=== PATIENT | male | born 1970 | race African-American/Black ===

== ENCOUNTER 2023-07-18 16:22 | Inpatient (IN) | payer MEDICAID, SELFPAY ==
[2023-07-18] MEDS ORDERED: Thiamine HCl 200 MG/2 ML VIAL ONE (17:08)
[2023-07-18] MEDS ORDERED: LORazepam 2 MG/ML SYR.(CARPUJECT) ONE (17:08)
[2023-07-18 17:38] LABS: INR-International Normal Ratio 1.4; PTT 33.6 sec (22.9-36.1); Prothrombin Time 16.8 sec (12.0-14.7)
[2023-07-18 17:50] LABS: ALT (SGPT) 56 U/L (8-55); AST (SGOT) 67 U/L (5-34); Acetaminophen Less than 10 mcg/mL (10.0-30.0); Albumin 3.8 g/dL (3.5-5.0); Alcohol Less than 10.0 mg/dL (Less than 10); Alkaline Phosphatase 97 U/L (40-110); Anion Gap 11 mmol/L (10-20); BUN (Urea Nitrogen) 19 mg/dL (8.4-25.7); Bilirubin, Total 0.8 mg/dL (0.2-1.2); Calc. Creatinine Clearance 0 mL/min (70-130); Carbon Dioxide 20 mmol/L (22-29); Chloride 105 mmol/L (98-107); Estimated GFR 103; Globulin 3.1 g/dL (2.4-3.5); Glucose 106 mg/dL (70-105); Magnesium 1.7 mg/dL (1.6-2.6); Potassium 4.2 mmol/L (3.5-5.1); Protein, Total 6.9 g/dL (6.0-8.3); Salicylate Less than 8.0 mg/dL (15.0-30.0); Sodium 132 mmol/L (136-145)
[2023-07-18 17:55] LABS: Troponin I 0.024 ng/mL (< 0.028)
[2023-07-18] MEDS ORDERED: Furosemide 40 MG (4 mL) VIAL ONE (20:14)
[2023-07-18] MEDS ORDERED: Aspirin Chewable 81 MG TAB ONE (21:14)
[2023-07-18] MEDS ORDERED: Magnesium 2 GM/50 ML BAG (IN WATER) ONE (21:14)
[2023-07-18 21:44] VITALS: BMI 28.0
[2023-07-18] MEDS ORDERED: Ondansetron ODT 4 MG TAB PO PRN (21:48)
[2023-07-18] MEDS ORDERED: Acetaminophen 325 MG TAB PO PRN (21:48)
[2023-07-18] MEDS ORDERED: Acetaminophen 650 MG Suppository PR PRN (21:48)
[2023-07-18] MEDS ORDERED: Lorazepam 1 MG TAB PO PRN (21:48)
[2023-07-18] MEDS ORDERED: Electrolyte Replacement Protocol 1 EACH FS PRN (22:00)
[2023-07-18] MEDS ORDERED: Communication Order-Pharmacy FS SCH (22:12)
[2023-07-18] MEDS ORDERED: Lorazepam 2 MG/ML VIAL SLOW IVP SCH (22:15)
[2023-07-18 22:22] LABS: #Basophils 0.1 thou/uL (0.0-0.2); #Eosinphils 0.1 thou/uL (0.0-0.7); #Monocytes 0.6 thou/uL (0.11-0.59); #Neutrophils 3.4 thou/uL (1.40-6.50); %Basophils 1.1 % (0.0-1.0); %Eosinophils 0.9 % (0.0-10.0); %Lymphocytes 22.4 % (21.0-51.0); %Monocytes 11.9 % (0.0-10.0); %Neutrophils 63.3 % (42.0-75.0); Hematocrit 33.1 % (42.0-52.0); Hemoglobin 10.3 g/dL (14.0-18.0); Mean Corpuscular HGB CONC 31.1 g/dL (32.0-36.0); Mean Corpuscular Hemoglobin 26.5 pg (27.0-31.0); Mean Corpuscular Volume 85.3 fl (78.0-98.0); Mean Platelet Volume 10.5 fL (7.4-10.4); Platelet Count 161 10x3/uL (130-400); RBC Distribution Width 16.9 % (11.5-14.5); Red Blood Cell (RBC) Count 3.88 mill/uL (4.70-6.10); White Blood Cell (WBC) Count 5.4 10x3/uL (4.8-10.8)
[2023-07-18] MEDS ORDERED: dilTIAZem 125 MG in Sodium Chloride 0.9% 100 ML IVPB SCH (22:30)
[2023-07-18] MEDS ORDERED: chlordiazePOXIDE HCl 25 MG CAP PO SCH (22:30)
[2023-07-18] MEDS: Lorazepam 1 MG TAB PO SCH (22:31)
[2023-07-18] MEDS ORDERED: Lorazepam 1 MG TAB ONE (22:33)
[2023-07-18 22:39] LABS: Phosphorus 2.9 mg/dL (2.3-4.7)
[2023-07-18] MEDS ORDERED: dilTIAZem 125 MG, Admixture Fee 1 EACH in Sodium Chloride 0.9% 100 ML IVPB SCH (22:45)
[2023-07-18 22:46] LABS: Troponin I 0.034 ng/mL (< 0.028)
[2023-07-19] MEDS: Enoxaparin 100 MG (1 mL) SYRINGE SC SCH ×2 (00:59→08:21)
[2023-07-19] MEDS: Lorazepam 2 MG/ML VIAL IM PRN (00:59)
[2023-07-19] MEDS: LORazepam 2 MG/ML SYR.(CARPUJECT) IVP SCH (01:01)
[2023-07-19] MEDS: Lorazepam 1 MG TAB PO SCH (01:02)
[2023-07-19 01:25] LABS: Troponin I 0.034 ng/mL (< 0.028)
[2023-07-19 05:01] LABS: Phosphorus 3.1 mg/dL (2.3-4.7)
[2023-07-19 05:03] LABS: Anion Gap 13 mmol/L (10-20); BUN (Urea Nitrogen) 15 mg/dL (8.4-25.7); Calc. Creatinine Clearance 123 mL/min (70-130); Calcium 9.1 mg/dL (7.8-10.44); Carbon Dioxide 21 mmol/L (22-29); Chloride 104 mmol/L (98-107); Estimated GFR 100; Glucose 97 mg/dL (70-105); Magnesium 2.1 mg/dL (1.6-2.6); Potassium 3.6 mmol/L (3.5-5.1); Sodium 134 mmol/L (136-145)
[2023-07-19] MEDS: Furosemide 40 MG (4 mL) VIAL SLOW IVP SCH (06:24)
[2023-07-19] MEDS: Famotidine 20 MG TAB PO SCH (08:21)
[2023-07-19] MEDS: chlordiazePOXIDE HCl 25 MG CAP PO SCH (08:21)
[2023-07-19] MEDS: Multivit, Therapeutic 1 TAB PO SCH (08:21)
[2023-07-19] MEDS: Folic Acid 1 MG TAB PO SCH (08:21)
[2023-07-19] MEDS ORDERED: Lorazepam 1 MG TAB PO PRN (21:48)
[2023-07-19] MEDS: Carvedilol 6.25 MG TAB PO SCH (22:21)
[2023-07-20 05:36] LABS: Hemoglobin 10.6 g/dL (14.0-18.0); Manual Diff?? YES; Mean Corpuscular HGB CONC 31.2 g/dL (32.0-36.0); Mean Corpuscular Hemoglobin 26.4 pg (27.0-31.0); Mean Corpuscular Volume 84.6 fl (78.0-98.0); Mean Platelet Volume 10.4 fL (7.4-10.4); Platelet Count 139 10x3/uL (130-400); RBC Distribution Width 16.8 % (11.5-14.5); Red Blood Cell (RBC) Count 4.02 mill/uL (4.70-6.10); White Blood Cell (WBC) Count 3.4 10x3/uL (4.8-10.8)
[2023-07-20 05:42] LABS: Delete Auto Diff?? YES
[2023-07-20 05:44] LABS: Hemoglobin A1c 5.5 % (4.0-6.0)
[2023-07-20 06:03] LABS: Anion Gap 12 mmol/L (10-20); BUN (Urea Nitrogen) 23 mg/dL (8.4-25.7); Calc. Creatinine Clearance 98 mL/min (70-130); Calcium 9.2 mg/dL (7.8-10.44); Carbon Dioxide 24 mmol/L (22-29); Chloride 100 mmol/L (98-107); Estimated GFR 82; Glucose 96 mg/dL (70-105); Potassium 3.4 mmol/L (3.5-5.1); Sodium 133 mmol/L (136-145)
[2023-07-20 06:14] LABS: Anisocytosis SLIGHT = 6-15 cells HPF (0-5); Band 5 % (5-11); CellaVision Operator ID LAB.CLH1; Hypochromia SLIGHT = 6-15 cells HPF (0-5); Large Platelets 16.5 % (0-5); Lymphocytes 28 % (21-51); Monocytes 12 % (0-10); Neutrophil 52 % (42-75); Platelet Adequacy Comment Platelets Normal; Total Cell Count 103
[2023-07-20] MEDS: Potassium Chloride 20 MEQ TAB PO SCH (08:54)
[2023-07-20 12:39] VITALS: BP 117/85; TEMP 98
[2023-07-20] MEDS: Naproxen 500 MG TAB PO PRN (13:46)
[2023-07-20] MEDS ORDERED: Lorazepam 1 MG TAB PO PRN (21:48)
[2023-07-21] MEDS ORDERED: Lorazepam 0.5 MG TAB PO PRN (21:48)
[2023-07-21] MEDS ORDERED: Thiamine 100 MG TAB PO SCH (22:00)
== END 2023-07-20 14:53 | disposition left against medical advice (07) | DRG 291 ==
LOC: ERS 16:22 → ERHOLD 21:17 → 2SE 23:20
PROVIDERS: ADMIT Internal Medicine; ATTEND Internal Medicine
DX: I11.0 Hypertensive heart disease with heart failure (principal); I50.21 Acute systolic (congestive) heart failure; F10.99 Alcohol use, unspecified with unspecified alcohol-induced disorder; Z59.00 Homelessness unspecified; I48.91 Unspecified atrial fibrillation; F15.10 Other stimulant abuse, uncomplicated; F12.10 Cannabis abuse, uncomplicated; E87.6 Hypokalemia; Z98.890 Other specified postprocedural states; Z88.0 Allergy status to penicillin
CPT/HCPCS: 36415; 36416; 70450; 71045; 80048; 80053; 80307; 83036; 83735; 83880; 84100; 84443; 84484; 85025; 85610; 85730; 93005; 93306; 96361; 96365; 96374; 96375; 97139; J1650; J1940; J2060; J3411; J3475

== ENCOUNTER 2023-07-30 01:05 | Emergency (ER) | payer MEDICAID, OTHER ==
[2023-07-30] MEDS ORDERED: Diazepam 10 MG/2 ML SYRINGE ONE (01:38)
[2023-07-30] MEDS ORDERED: dilTIAZem 25 MG/5 ML VIAL ONE (01:39)
== END 2023-07-30 03:10 | disposition left against medical advice (07) ==
LOC: ERS 01:05
DX: I48.20 Chronic atrial fibrillation, unspecified (principal); I10 Essential (primary) hypertension
CPT/HCPCS: 71045; 93005; 96374; 96375; J3360

== ENCOUNTER 2023-08-01 10:46 | Inpatient (IN) | payer MEDICAID, OTHER ==
[2023-08-01 11:33] LABS: #Basophils 0.1 thou/uL (0.0-0.2); #Eosinphils 0.4 thou/uL (0.0-0.7); #Monocytes 0.6 thou/uL (0.11-0.59); #Neutrophils 3.2 thou/uL (1.40-6.50); %Basophils 1.5 % (0.0-1.0); %Eosinophils 6.8 % (0.0-10.0); %Lymphocytes 20.1 % (21.0-51.0); Hematocrit 33.9 % (42.0-52.0); Hemoglobin 10.7 g/dL (14.0-18.0); Mean Corpuscular HGB CONC 31.6 g/dL (32.0-36.0); Mean Corpuscular Hemoglobin 26.6 pg (27.0-31.0); Mean Corpuscular Volume 84.1 fl (78.0-98.0); Mean Platelet Volume 11.8 fL (7.4-10.4); Platelet Count 119 10x3/uL (130-400); Red Blood Cell (RBC) Count 4.03 mill/uL (4.70-6.10); White Blood Cell (WBC) Count 5.3 10x3/uL (4.8-10.8)
[2023-08-01 11:46] LABS: Troponin I 0.019 ng/mL (< 0.028)
[2023-08-01] MEDS ORDERED: Metoclopramide HCl 10 MG (2 mL) VIAL ONE (12:04)
[2023-08-01] MEDS ORDERED: Enoxaparin 100 MG (1 mL) SYRINGE ONE (12:05)
[2023-08-01] MEDS ORDERED: LORazepam 2 MG/ML SYR.(CARPUJECT) ONE ×3 (12:05→13:19)
[2023-08-01] MEDS ORDERED: Magnesium 2 GM/50 ML BAG (IN WATER) ONE (12:05)
[2023-08-01] MEDS ORDERED: Famotidine/PF 20 mg/2ml Vial ONE (12:05)
[2023-08-01] MEDS ORDERED: Metoprolol Tartrate 5 MG (5 mL) VIAL ONE (12:30)
[2023-08-01] MEDS ORDERED: Senokot S 8.6-50 MG TAB PO PRN (13:16)
[2023-08-01] MEDS ORDERED: Calcium Carbonate 500 MG ChewTAB PO PRN (13:16)
[2023-08-01] MEDS ORDERED: Ondansetron PF 4 MG/2 ML Vial IVP PRN (13:16)
[2023-08-01] MEDS ORDERED: Furosemide 40 MG (4 mL) VIAL ONE ×2 (13:19→17:50)
[2023-08-01] MEDS ORDERED: Metoprolol Tartrate 5 MG (5 mL) VIAL IVP PRN (13:20)
[2023-08-01] MEDS ORDERED: Apixaban 5 MG TAB PO SCH (13:30)
[2023-08-01 13:40] LABS: Albumin 3.9 g/dL (3.5-5.0)
[2023-08-01 13:41] LABS: Chloride 107 mmol/L (98-107); Potassium 4.4 mmol/L (3.5-5.1); Sodium 132 mmol/L (136-145)
[2023-08-01 13:42] LABS: Calcium 9.2 mg/dL (7.8-10.44); Glucose 88 mg/dL (70-105)
[2023-08-01 13:43] LABS: Globulin 3.3 g/dL (2.4-3.5); Protein, Total 7.2 g/dL (6.0-8.3)
[2023-08-01 13:44] LABS: Anion Gap 11 mmol/L (10-20); Bilirubin, Total 1.1 mg/dL (0.2-1.2); Carbon Dioxide 18 mmol/L (22-29)
[2023-08-01 13:45] LABS: Alkaline Phosphatase 98 U/L (40-110)
[2023-08-01 13:46] LABS: Calc. Creatinine Clearance 0 mL/min (70-130); Estimated GFR 91
[2023-08-01 13:47] LABS: BUN (Urea Nitrogen) 22 mg/dL (8.4-25.7)
[2023-08-01 13:48] LABS: ALT (SGPT) 30 U/L (8-55); AST (SGOT) 37 U/L (5-34)
[2023-08-01] MEDS ORDERED: Metoprolol Tartrate 25 MG TAB ONE (14:49)
[2023-08-01] MEDS ORDERED: Lorazepam 1 MG TAB ONE (14:49)
[2023-08-01] MEDS: Lorazepam 1 MG TAB PO PRN (14:55)
[2023-08-01] MEDS: Metoprolol Tartrate 50 MG TAB PO SCH ×2 (14:55→21:24)
[2023-08-01] MEDS ORDERED: Furosemide 40 MG TAB PO SCH (18:00)
[2023-08-01] MEDS: Furosemide 40 MG (4 mL) VIAL IVP SCH (18:06)
[2023-08-01] MEDS: Lorazepam 2 MG/ML VIAL SLOW IVP SCH (21:22)
[2023-08-01] MEDS: Apixaban 5 MG TAB PO SCH (21:24)
[2023-08-01] MEDS: Folic Acid 1 MG TAB PO SCH (21:24)
[2023-08-01] MEDS: Multivit, Therapeutic 1 TAB PO SCH (21:24)
[2023-08-01 22:09] LABS: Actual Bicarbonate (HCO3v) 22.9 mEq/L (22-28); Base Excess -2.2 mEq/L (-2.0 to +3.0); Calcium, Ionized (venous) 1.14 mmol/L (1.16-1.32); Chloride (VBG) 101 mmol/L (98-106); Hematocrit-VBG 33 % (42.0-52.0); Hemoglobin (Hb) 11.3 g/dL (13.1-17.2); Potassium (VBG) 3.99 mmol/L (3.70-5.30); Sodium 137 mmol/L (133-146)
[2023-08-02 03:52] VITALS: TEMP 97.5
[2023-08-02 04:52] VITALS: BMI 24.1
[2023-08-02 05:57] LABS: #Basophils 0.1 thou/uL (0.0-0.2); #Eosinphils 0.4 thou/uL (0.0-0.7); #Monocytes 0.7 thou/uL (0.11-0.59); #Neutrophils 3.9 thou/uL (1.40-6.50); %Eosinophils 5.5 % (0.0-10.0); %Lymphocytes 24.7 % (21.0-51.0); %Monocytes 10.6 % (0.0-10.0); %Neutrophils 56.8 % (42.0-75.0); Mean Corpuscular HGB CONC 30.6 g/dL (32.0-36.0); Mean Corpuscular Volume 85.1 fl (78.0-98.0); Mean Platelet Volume 11.9 fL (7.4-10.4); Platelet Count 156 10x3/uL (130-400); RBC Distribution Width 17.3 % (11.5-14.5); Red Blood Cell (RBC) Count 4.23 mill/uL (4.70-6.10); White Blood Cell (WBC) Count 6.9 10x3/uL (4.8-10.8)
[2023-08-02] MEDS: Lorazepam 1 MG TAB PO PRN (05:59)
[2023-08-02] MEDS: Nicotine 21 MG PATCH TD PRN (06:00)
[2023-08-02] MEDS: Furosemide 40 MG (4 mL) VIAL SLOW IVP SCH (06:00)
[2023-08-02 06:16] LABS: Anion Gap 16 mmol/L (10-20); BUN (Urea Nitrogen) 31 mg/dL (8.4-25.7); Calc. Creatinine Clearance 77 mL/min (70-130); Carbon Dioxide 18 mmol/L (22-29); Chloride 103 mmol/L (98-107); Potassium 4.2 mmol/L (3.5-5.1); Sodium 133 mmol/L (136-145)
[2023-08-02 06:17] LABS: ALT (SGPT) 36 U/L (8-55); AST (SGOT) 43 U/L (5-34); Albumin 4.2 g/dL (3.5-5.0); Alkaline Phosphatase 118 U/L (40-110); Bilirubin, Total 1.3 mg/dL (0.2-1.2); Calcium 9.5 mg/dL (7.8-10.44); Cardiac Risk 3.6 (Less than 4.5); Cholesterol 82 mg/dl (< 200 Desired); Estimated GFR 62; Globulin 3.6 g/dL (2.4-3.5); Glucose 80 mg/dL (70-105); HDL Cholesterol 23 mg/dL (>60 Neg Risk); LDL Cholesterol, Calculated 40 mg/dL; Protein, Total 7.8 g/dL (6.0-8.3); Triglycerides 93 mg/dL (Less than 150)
[2023-08-02 06:36] LABS: Hemoglobin A1c 5.4 % (4.0-6.0)
[2023-08-02] MEDS: Thiamine 100 MG TAB PO SCH (08:55)
[2023-08-02 10:51] VITALS: BP 146/78
[2023-08-02] MEDS ORDERED: Lorazepam 1 MG TAB PO PRN (23:59)
[2023-08-03] MEDS ORDERED: Lorazepam 1 MG TAB PO PRN (23:59)
[2023-08-04] MEDS ORDERED: Lorazepam 0.5 MG TAB PO PRN (23:59)
== END 2023-08-02 12:16 | disposition left against medical advice (07) | DRG 291 ==
LOC: EEVIPCON 10:46 → ERS 10:46 → SUATTDRO 10:46 → EEVIPCON 13:28 → ERHOLD 13:28 → 2SW 19:10
PROVIDERS: ADMIT Internal Medicine; ATTEND Internal Medicine
DX: I11.0 Hypertensive heart disease with heart failure (principal); I50.23 Acute on chronic systolic (congestive) heart failure; E87.1 Hypo-osmolality and hyponatremia; Z59.00 Homelessness unspecified; I48.91 Unspecified atrial fibrillation; F41.9 Anxiety disorder, unspecified; F32.A Depression, unspecified; F43.10 Post-traumatic stress disorder, unspecified; F17.210 Nicotine dependence, cigarettes, uncomplicated; D64.9 Anemia, unspecified; F19.10 Other psychoactive substance abuse, uncomplicated; Z88.0 Allergy status to penicillin
CPT/HCPCS: 36415; 36416; 71045; 80053; 80061; 82805; 83036; 83735; 83880; 84443; 84484; 85025; 85379; 93005; 94760; 96365; 96368; 96372; 96375; 96376; J1650; J1940; J2060; J2765; J3475; S0028

== ENCOUNTER 2023-08-03 18:20 | Emergency (ER) | payer MEDICAID ==
[2023-08-03] MEDS ORDERED: Thiamine HCl 200 MG/2 ML VIAL ONE (18:45)
[2023-08-03 19:19] LABS: #Basophils 0.1 thou/uL (0.0-0.2); #Eosinphils 0.1 thou/uL (0.0-0.7); #Monocytes 0.4 thou/uL (0.11-0.59); #Neutrophils 5.1 thou/uL (1.40-6.50); %Basophils 0.9 % (0.0-1.0); %Eosinophils 1.9 % (0.0-10.0); %Lymphocytes 14.6 % (21.0-51.0); %Monocytes 5.8 % (0.0-10.0); %Neutrophils 76.2 % (42.0-75.0); Hematocrit 33.5 % (42.0-52.0); Hemoglobin 10.7 g/dL (14.0-18.0); Mean Corpuscular HGB CONC 31.9 g/dL (32.0-36.0); Mean Corpuscular Hemoglobin 26.3 pg (27.0-31.0); Mean Corpuscular Volume 82.3 fl (78.0-98.0); Mean Platelet Volume 10.4 fL (7.4-10.4); Platelet Count 163 10x3/uL (130-400); RBC Distribution Width 17.2 % (11.5-14.5); Red Blood Cell (RBC) Count 4.07 mill/uL (4.70-6.10); White Blood Cell (WBC) Count 6.7 10x3/uL (4.8-10.8)
[2023-08-03 19:38] LABS: ALT (SGPT) 40 U/L (8-55); AST (SGOT) 52 U/L (5-34); Albumin 4.1 g/dL (3.5-5.0); Alkaline Phosphatase 102 U/L (40-110); Anion Gap 15 mmol/L (10-20); BUN (Urea Nitrogen) 23 mg/dL (8.4-25.7); Bilirubin, Total 1.2 mg/dL (0.2-1.2); CK (CPK) 208 U/L (30-200); Calc. Creatinine Clearance 0 mL/min (70-130); Calcium 9.1 mg/dL (7.8-10.44); Carbon Dioxide 21 mmol/L (22-29); Chloride 98 mmol/L (98-107); Estimated GFR 88; Globulin 3.6 g/dL (2.4-3.5); Glucose 74 mg/dL (70-105); Lipase 13 U/L (8-78); Potassium 3.8 mmol/L (3.5-5.1); Protein, Total 7.7 g/dL (6.0-8.3); Sodium 130 mmol/L (136-145)
[2023-08-03 21:36] LABS: Bacteria/HPF None Seen HPF (None Seen); Bilirubin Negative (Negative); Blood, Urine Negative (Negative); CAUTI Indications for Culture Alt mental st,lethar; Clarity Clear (Clear); Glucose, Urine (Dipstick) Normal (Negative); Ketone, Urine Negative (Negative); Leukocyte Negative Leu/uL (Negative); Nitrite Negative (Negative); Protein, Urine (Dipstick) Negative (Neg-Trace); RBC/HPF None Seen HPF (0-3); Specific Gravity, Urine 1.003 (1.002-1.036); Squamous Epithelial None Seen HPF (0-3); Urobilinogen Normal mg/dL (Less than 2); WBC/HPF None Seen HPF (0-3)
[2023-08-03 21:37] LABS: Urine Culture Reflex No No
== END 2023-08-03 22:25 | disposition home or self-care (01) ==
LOC: ERS 18:20
DX: S62.002A Unspecified fracture of navicular [scaphoid] bone of left wrist, initial encounter for closed fracture (principal); I48.91 Unspecified atrial fibrillation; F10.129 Alcohol abuse with intoxication, unspecified; I11.0 Hypertensive heart disease with heart failure; I50.20 Unspecified systolic (congestive) heart failure; B19.20 Unspecified viral hepatitis C without hepatic coma; R70.0 Elevated erythrocyte sedimentation rate; F17.210 Nicotine dependence, cigarettes, uncomplicated; Y35 Legal intervention
CPT/HCPCS: 25630; 36415; 70450; 71045; 80053; 81001; 82140; 82550; 83690; 83735; 84443; 85025; 93005; 94760; 96361; 96374; J3411

== ENCOUNTER 2023-08-04 21:47 | Emergency (ER) | payer MEDICAID ==
[2023-08-04] MEDS ORDERED: Lidocaine 1% w/Epinephrine 1:100K 20 ML VIAL ONE (22:05)
[2023-08-05 01:01] LABS: Amphetamine Not Detected (NotDetected); Barbiturates Screen Not Detected (NotDetected); Benzodiazepine Screen Detected (NotDetected); Cocaine Metabolite Screen Not Detected (NotDetected); Methadone Not Detected (NotDetected); Methamphetamine Not Detected (NotDetected); Opiate Screen Not Detected (NotDetected); Oxycodone Screen Not Detected (NotDetected); Phencyclidine (PCP) Not Detected (NotDetected); THC/Cannabinoid Screen Detected (NotDetected); Tricyclic Screen Not Detected (NotDetected)
[2023-08-05 02:19] LABS: #Basophils 0.1 thou/uL (0.0-0.2); #Eosinphils 0.5 thou/uL (0.0-0.7); #Monocytes 0.5 thou/uL (0.11-0.59); #Neutrophils 3.8 thou/uL (1.40-6.50); %Basophils 1.5 % (0.0-1.0); %Eosinophils 7.3 % (0.0-10.0); %Lymphocytes 26.4 % (21.0-51.0); %Monocytes 7.9 % (0.0-10.0); Hematocrit 35.3 % (42.0-52.0); Hemoglobin 11.1 g/dL (14.0-18.0); Mean Corpuscular HGB CONC 31.4 g/dL (32.0-36.0); Mean Corpuscular Hemoglobin 26.2 pg (27.0-31.0); Mean Corpuscular Volume 83.5 fl (78.0-98.0); Mean Platelet Volume 10.8 fL (7.4-10.4); Platelet Count 199 10x3/uL (130-400); RBC Distribution Width 17.7 % (11.5-14.5); Red Blood Cell (RBC) Count 4.23 mill/uL (4.70-6.10); White Blood Cell (WBC) Count 6.8 10x3/uL (4.8-10.8)
[2023-08-05 02:36] LABS: Acetaminophen Less than 10 mcg/mL (10.0-30.0); Alcohol 217.1 mg/dL (Less than 10); Salicylate Less than 8.0 mg/dL (15.0-30.0)
[2023-08-05 02:37] LABS: ALT (SGPT) 35 U/L (8-55); AST (SGOT) 45 U/L (5-34); Alkaline Phosphatase 101 U/L (40-110); Anion Gap 14 mmol/L (10-20); BUN (Urea Nitrogen) 16 mg/dL (8.4-25.7); Bilirubin, Total 0.6 mg/dL (0.2-1.2); Calc. Creatinine Clearance 0 mL/min (70-130); Calcium 8.6 mg/dL (7.8-10.44); Carbon Dioxide 24 mmol/L (22-29); Chloride 104 mmol/L (98-107); Estimated GFR 80; Globulin 3.2 g/dL (2.4-3.5); Glucose 79 mg/dL (70-105); Potassium 3.5 mmol/L (3.5-5.1); Protein, Total 7.2 g/dL (6.0-8.3); Sodium 138 mmol/L (136-145)
[2023-08-05] MEDS ORDERED: Ibuprofen 800 MG TAB ONE (03:34)
[2023-08-05] MEDS ORDERED: chlordiazePOXIDE HCl 25 MG CAP ONE (03:59)
[2023-08-05] MEDS ORDERED: hydrOXYzine Pamoate 25 mg Capsule ONE (10:36)
[2023-08-05] MEDS ORDERED: Acetaminophen 325 MG TAB ONE (10:36)
[2023-08-05] MEDS ORDERED: Ibuprofen 200 MG TAB ONE (13:57)
[2023-08-05] MEDS ORDERED: Lorazepam 1 MG TAB ONE (14:14)
== END 2023-08-05 14:20 ==
LOC: ERS 21:47
DX: S01.81XA Laceration without foreign body of other part of head, initial encounter (principal); F10.129 Alcohol abuse with intoxication, unspecified; Y90.7 Blood alcohol level of 200-239 mg/100 ml; R45.851 Suicidal ideations; I11.0 Hypertensive heart disease with heart failure; I50.9 Heart failure, unspecified; F17.210 Nicotine dependence, cigarettes, uncomplicated; V19.9XXA Pedal cyclist (driver) (passenger) injured in unspecified traffic accident, initial encounter
CPT/HCPCS: 25630; 36415; 70450; 71045; 72125; 80053; 80306; 80307; 81001; 82140; 82550; 83690; 83735; 84443; 85025; 93005; 94760; 96361; 96374; J3411; Q0177

== ENCOUNTER 2023-08-22 05:57 | Emergency (ER) | payer MEDICAID | END 2023-08-22 06:48 | disposition home or self-care (01) | LOC: ERS 05:57 | DX: S91.312A Laceration without foreign body, left foot, initial encounter (principal); I83.892 Varicose veins of left lower extremity with other complications; X58.XXXA Exposure to other specified factors, initial encounter | CPT/HCPCS: 12001 ==

== ENCOUNTER 2023-08-29 11:10 | Inpatient (IN) | payer MEDICAID, OTHER ==
[2023-08-29] MEDS ORDERED: Lorazepam 1 MG TAB ONE ×3 (11:27→20:57)
[2023-08-29] MEDS ORDERED: LORazepam 2 MG/ML SYR.(CARPUJECT) ONE (11:37)
[2023-08-29] MEDS ORDERED: Ondansetron PF 4 MG/2 ML Vial ONE (11:37)
[2023-08-29 12:18] LABS: #Basophils 0.1 thou/uL (0.0-0.2); #Eosinphils 0.1 thou/uL (0.0-0.7); #Monocytes 0.7 thou/uL (0.11-0.59); #Neutrophils 3.6 thou/uL (1.40-6.50); %Basophils 1.4 % (0.0-1.0); %Eosinophils 1.7 % (0.0-10.0); %Lymphocytes 22.5 % (21.0-51.0); %Monocytes 12.4 % (0.0-10.0); %Neutrophils 61.5 % (42.0-75.0); Hemoglobin 8.2 g/dL (14.0-18.0); Mean Corpuscular HGB CONC 31.5 g/dL (32.0-36.0); Mean Corpuscular Hemoglobin 24.8 pg (27.0-31.0); Mean Corpuscular Volume 78.8 fl (78.0-98.0); Mean Platelet Volume 10.5 fL (7.4-10.4); Platelet Count 237 10x3/uL (130-400); RBC Distribution Width 17.2 % (11.5-14.5); White Blood Cell (WBC) Count 5.8 10x3/uL (4.8-10.8)
[2023-08-29 12:32] LABS: ALT (SGPT) 47 U/L (8-55); AST (SGOT) 50 U/L (5-34); Acetaminophen Less than 10 mcg/mL (10.0-30.0); Albumin 3.7 g/dL (3.5-5.0); Alcohol Less than 10.0 mg/dL (Less than 10); Alkaline Phosphatase 101 U/L (40-110); Anion Gap 15 mmol/L (10-20); BUN (Urea Nitrogen) 24 mg/dL (8.4-25.7); Bilirubin, Total 1.3 mg/dL (0.2-1.2); Calc. Creatinine Clearance 0 mL/min (70-130); Calcium 9.3 mg/dL (7.8-10.44); Carbon Dioxide 18 mmol/L (22-29); Chloride 101 mmol/L (98-107); Estimated GFR 87; Globulin 3.7 g/dL (2.4-3.5); Glucose 89 mg/dL (70-105); Potassium 5.1 mmol/L (3.5-5.1); Protein, Total 7.4 g/dL (6.0-8.3); Salicylate Less than 8.0 mg/dL (15.0-30.0); Sodium 129 mmol/L (136-145)
[2023-08-29 12:35] LABS: Troponin I 0.051 ng/mL (< 0.028)
[2023-08-29 12:40] LABS: INR-International Normal Ratio 1.6; Prothrombin Time 19.3 sec (12.0-14.7)
[2023-08-29] MEDS ORDERED: dilTIAZem 125 MG/25 ML SDV ONE (12:42)
[2023-08-29] MEDS ORDERED: Ondansetron ODT 4 MG TAB PO PRN (14:54)
[2023-08-29] MEDS ORDERED: Lorazepam 2 MG/ML VIAL IM PRN (14:54)
[2023-08-29] MEDS ORDERED: Lorazepam 1 MG TAB PO PRN (14:54)
[2023-08-29] MEDS ORDERED: Electrolyte Replacement Protocol 1 EACH FS SCH (15:00)
[2023-08-29 15:30] LABS: Bacteria/HPF None Seen HPF (None Seen); Bilirubin Negative (Negative); Blood, Urine Negative (Negative); CAUTI Indications for Culture Alt mental st,lethar; Clarity Clear (Clear); Glucose, Urine (Dipstick) Normal (Negative); Ketone, Urine Negative (Negative); Leukocyte Negative Leu/uL (Negative); Nitrite Negative (Negative); Protein, Urine (Dipstick) 10 mg/dL (Neg-Trace); RBC/HPF None Seen HPF (0-3); Specific Gravity, Urine 1.017 (1.002-1.036); Squamous Epithelial None Seen HPF (0-3); Urobilinogen Normal mg/dL (Less than 2); WBC/HPF 0-3 HPF (0-3)
[2023-08-29 15:32] LABS: Urine Culture Reflex No No
[2023-08-29] MEDS ORDERED: Thiamine HCl 200 MG/2 ML VIAL ONE (15:37)
[2023-08-29 15:38] LABS: Amphetamine Not Detected (NotDetected); Barbiturates Screen Not Detected (NotDetected); Benzodiazepine Screen Detected (NotDetected); Cocaine Metabolite Screen Not Detected (NotDetected); Methadone Not Detected (NotDetected); Methamphetamine Not Detected (NotDetected); Opiate Screen Not Detected (NotDetected); Oxycodone Screen Not Detected (NotDetected); Phencyclidine (PCP) Not Detected (NotDetected); THC/Cannabinoid Screen Detected (NotDetected); Tricyclic Screen Not Detected (NotDetected)
[2023-08-29 15:44] LABS: Magnesium 1.9 mg/dL (1.6-2.6); Phosphorus 3.5 mg/dL (2.3-4.7)
[2023-08-29] MEDS: Thiamine HCl 200 MG/2 ML VIAL SLOW IVP SCH (15:58)
[2023-08-29] MEDS: Lorazepam 1 MG TAB PO SCH (15:58)
[2023-08-29] MEDS ORDERED: Multivit, Therapeutic 1 TAB ONE (16:43)
[2023-08-29] MEDS ORDERED: Folic Acid 1 MG TAB ONE (16:43)
[2023-08-29] MEDS: Multivit, Therapeutic 1 TAB PO SCH (16:44)
[2023-08-29] MEDS: Folic Acid 1 MG TAB PO SCH (16:44)
[2023-08-29] MEDS ORDERED: chlordiazePOXIDE HCl 25 MG CAP ONE (20:57)
[2023-08-29] MEDS ORDERED: Atorvastatin Calcium 40 MG TAB ONE (20:57)
[2023-08-29] MEDS ORDERED: Apixaban 5 MG TAB ONE (20:58)
[2023-08-29] MEDS: Atorvastatin Calcium 40 MG TAB PO SCH (20:59)
[2023-08-29] MEDS: chlordiazePOXIDE HCl 25 MG CAP PO SCH (20:59)
[2023-08-29] MEDS: Apixaban 5 MG TAB PO SCH (20:59)
[2023-08-29] MEDS ORDERED: dilTIAZem 125 MG in Sodium Chloride 0.9% 100 ML IVPB SCH (23:45)
[2023-08-30 00:06] VITALS: BMI 26.6
[2023-08-30] MEDS: Furosemide 20 MG (2 mL) VIAL SLOW IVP SCH (00:36)
[2023-08-30 02:04] LABS: Influenza A by NAA Not Detected (NotDetected); Influenza B by NAA Not Detected (NotDetected); RSV by NAA Not Detected (NotDetected); SARS-CoV-2 NAA Rapid Test Not Detected (NotDetected)
[2023-08-30] MEDS: Furosemide 40 MG (4 mL) VIAL SLOW IVP SCH (05:38)
[2023-08-30 06:30] LABS: #Basophils 0.1 thou/uL (0.0-0.2); #Eosinphils 0.2 thou/uL (0.0-0.7); #Monocytes 0.8 thou/uL (0.11-0.59); #Neutrophils 3.3 thou/uL (1.40-6.50); %Basophils 1.6 % (0.0-1.0); %Eosinophils 3.2 % (0.0-10.0); %Lymphocytes 21.2 % (21.0-51.0); %Monocytes 14.7 % (0.0-10.0); %Neutrophils 58.6 % (42.0-75.0); Hematocrit 23.7 % (42.0-52.0); Hemoglobin 7.3 g/dL (14.0-18.0); Mean Corpuscular HGB CONC 30.8 g/dL (32.0-36.0); Mean Corpuscular Hemoglobin 24.4 pg (27.0-31.0); Mean Corpuscular Volume 79.3 fl (78.0-98.0); Mean Platelet Volume 10.4 fL (7.4-10.4); Platelet Count 217 10x3/uL (130-400); Red Blood Cell (RBC) Count 2.99 mill/uL (4.70-6.10); White Blood Cell (WBC) Count 5.7 10x3/uL (4.8-10.8)
[2023-08-30 06:56] LABS: ALT (SGPT) 43 U/L (8-55); AST (SGOT) 48 U/L (5-34); Albumin 3.2 g/dL (3.5-5.0); Alkaline Phosphatase 108 U/L (40-110); Anion Gap 11 mmol/L (10-20); BUN (Urea Nitrogen) 29 mg/dL (8.4-25.7); Bilirubin, Total 0.8 mg/dL (0.2-1.2); Calc. Creatinine Clearance 94 mL/min (70-130); Calcium 8.9 mg/dL (7.8-10.44); Carbon Dioxide 22 mmol/L (22-29); Chloride 102 mmol/L (98-107); Estimated GFR 70; Globulin 3.3 g/dL (2.4-3.5); Glucose 106 mg/dL (70-105); Potassium 4.4 mmol/L (3.5-5.1); Protein, Total 6.5 g/dL (6.0-8.3); Sodium 131 mmol/L (136-145)
[2023-08-30 07:15] LABS: HBCM Index 0.06 S/CO (0-0.79); HBSAg Index 0.33 S/CO (0-0.99); Hep A IgM AB Non-Reactive (NonReactive); Hep A IgM S/CO 0.15 S/CO (0-0.79); Hep B Surf Ag Non-Reactive S/CO (NonReactive); Hepatitis B Core IgM Abs Non-Reactive S/CO (NonReactive)
[2023-08-30] MEDS: Spironolactone 25 MG TAB PO SCH (08:41)
[2023-08-30] MEDS: Multivit, Therapeutic 1 TAB PO SCH (08:41)
[2023-08-30] MEDS: Folic Acid 1 MG TAB PO SCH (08:41)
[2023-08-30] MEDS: Carvedilol 6.25 MG TAB PO SCH (08:42)
[2023-08-30] MEDS: Magnesium 2 GM/50 ML(in water) 2 GM in Premix 1 BAG IVPB SCH (08:42)
[2023-08-30] MEDS: Pantoprazole 40 MG VIAL IVP SCH (08:42)
[2023-08-30] MEDS ORDERED: Enoxaparin 40 MG (0.4 mL) SYRINGE SC SCH (09:00)
[2023-08-30 09:11] LABS: Hep C IgG Ab Reflex HepC Qnt S/CO (NonReactive)
[2023-08-30 09:15] LABS: Hep C Index 14.12 S/CO (0-0.79)
[2023-08-30] MEDS: Morphine 4 MG/ML VIAL ONE (11:41)
[2023-08-30 12:20] LABS: Potassium 4.2 mmol/L (3.5-5.1); Sodium 131 mmol/L (136-145)
[2023-08-30] MEDS: Morphine 4 MG/ML VIAL SLOW IVP SCH (12:59)
[2023-08-30] MEDS ORDERED: Lorazepam 1 MG TAB PO PRN (14:55)
[2023-08-31] MEDS ORDERED: LORazepam 2 MG/ML SYR.(CARPUJECT) IVP PRN ×2 (00:50→14:55)
[2023-08-31] MEDS: dilTIAZem 125 MG in Sodium Chloride 0.9% 100 ML IVPB SCH (01:30)
[2023-08-31] MEDS: LORazepam 2 MG/ML SYR.(CARPUJECT) IVP PRN (04:19)
[2023-08-31] MEDS: LORazepam 2 MG/ML SYR.(CARPUJECT) IVP SCH ×2 (05:15→16:36)
[2023-08-31 05:57] LABS: Anion Gap 12 mmol/L (10-20); BUN (Urea Nitrogen) 27 mg/dL (8.4-25.7); Calc. Creatinine Clearance 101 mL/min (70-130); Calcium 8.8 mg/dL (7.8-10.44); Carbon Dioxide 23 mmol/L (22-29); Chloride 101 mmol/L (98-107); Estimated GFR 77; Glucose 94 mg/dL (70-105); Potassium 4.2 mmol/L (3.5-5.1); Sodium 132 mmol/L (136-145)
[2023-08-31 06:18] LABS: #Basophils 0.1 thou/uL (0.0-0.2); #Eosinphils 0.3 thou/uL (0.0-0.7); #Monocytes 0.8 thou/uL (0.11-0.59); #Neutrophils 2.8 thou/uL (1.40-6.50); %Basophils 1.2 % (0.0-1.0); %Eosinophils 4.9 % (0.0-10.0); %Lymphocytes 21.8 % (21.0-51.0); %Monocytes 15.5 % (0.0-10.0); %Neutrophils 55.6 % (42.0-75.0); Hematocrit 23.7 % (42.0-52.0); Hemoglobin 7.2 g/dL (14.0-18.0); Mean Corpuscular HGB CONC 30.4 g/dL (32.0-36.0); Mean Corpuscular Hemoglobin 24.3 pg (27.0-31.0); Mean Corpuscular Volume 80.1 fl (78.0-98.0); Mean Platelet Volume 10.1 fL (7.4-10.4); Platelet Count 193 10x3/uL (130-400); RBC Distribution Width 16.9 % (11.5-14.5); Red Blood Cell (RBC) Count 2.96 mill/uL (4.70-6.10); White Blood Cell (WBC) Count 5.1 10x3/uL (4.8-10.8)
[2023-08-31] MEDS: Carvedilol 6.25 MG TAB PO SCH (09:19)
[2023-08-31] MEDS: Spironolactone 25 MG TAB PO SCH (09:19)
[2023-08-31] MEDS: Potassium Chloride 20 MEQ TAB PO SCH (09:19)
[2023-08-31] MEDS ORDERED: Lorazepam 1 MG TAB PO PRN (14:55)
[2023-08-31] MEDS: Furosemide 20 MG TAB PO SCH (15:25)
[2023-08-31] MEDS ORDERED: Lorazepam 0.5 MG TAB PO SCH (16:00)
[2023-08-31] MEDS: Lorazepam 0.5 MG TAB PO PRN (23:13)
[2023-09-01 04:33] VITALS: TEMP 98.4
[2023-09-01 08:50] VITALS: BP 120/65
[2023-09-01] MEDS ORDERED: Lorazepam 0.5 MG TAB PO PRN (14:55)
[2023-09-01] MEDS ORDERED: Thiamine 100 MG TAB PO SCH (16:00)
[2023-09-01 16:15] LABS: HCV RNA, log10 4.111 (.); Hep C PCR-Quant 12900 IU/mL (.)
== END 2023-09-01 09:23 | disposition home or self-care (01) | DRG 291 ==
LOC: ERS 11:10 → ERHOLD 15:01 → IMCU/EMU 23:42 → 2NO 08-31 16:28
PROVIDERS: ADMIT Emergency Medicine; ATTEND Hospitalist
DX: I11.0 Hypertensive heart disease with heart failure (principal); I50.23 Acute on chronic systolic (congestive) heart failure; I48.11 Longstanding persistent atrial fibrillation; F10.239 Alcohol dependence with withdrawal, unspecified; Z59.00 Homelessness unspecified; Q21.12 Patent foramen ovale; E87.1 Hypo-osmolality and hyponatremia; E87.20 Acidosis, unspecified; Z88.0 Allergy status to penicillin; Z98.890 Other specified postprocedural states; F15.10 Other stimulant abuse, uncomplicated; Z79.01 Long term (current) use of anticoagulants; Z79.899 Other long term (current) drug therapy; I34.0 Nonrheumatic mitral (valve) insufficiency; I42.8 Other cardiomyopathies; D64.9 Anemia, unspecified; Z91.148 Patient's other noncompliance with medication regimen for other reason; I87.2 Venous insufficiency (chronic) (peripheral)
CPT/HCPCS: 0241U; 36415; 36416; 71045; 80048; 80053; 80074; 80306; 80307; 81001; 83735; 83880; 84100; 84484; 85025; 85610; 85730; 87522; 93005; 93306; 93798; 96374; 96375; C9113; J1940; J2060; J2270; J2405; J3411; J3475; J3490

== ENCOUNTER 2023-10-12 04:45 | Inpatient (IN) | payer OTHER ==
[2023-10-12 05:47] VITALS: BMI 25.2
[2023-10-12] MEDS ORDERED: Lorazepam 1 MG TAB PO PRN (06:27)
[2023-10-12] MEDS ORDERED: Ondansetron ODT 4 MG TAB PO PRN (06:27)
[2023-10-12] MEDS ORDERED: Lorazepam 2 MG/ML VIAL IM PRN (06:27)
[2023-10-12] MEDS ORDERED: Electrolyte Replacement Protocol 1 EACH FS SCH (06:30)
[2023-10-12] MEDS ORDERED: Electrolyte Replacement Protocol FS PRN (06:45)
[2023-10-12 06:56] LABS: #Basophils 0.06 10x3/uL (0.0-0.2); %Basophils 1.4 % (0.0-1.0); %Eosinophils 1.2 % (0.0-10.0); %Lymphocytes 25.1 % (21.0-51.0); %Monocytes 18.7 % (0.0-10.0); %Neutrophils 53.4 % (42.0-75.0); Hematocrit 27.1 % (42.0-52.0); Mean Corpuscular HGB CONC 29.5 g/dL (32.0-36.0); Mean Corpuscular Volume 74.7 fL (78.0-98.0); Mean Platelet Volume 9.1 fL (7.4-10.4); Platelet Count 183 10x3/uL (130-400); Red Blood Cell (RBC) Count 3.63 mill/uL (4.70-6.10)
[2023-10-12 07:04] LABS: Globulin 3.8 g/dL (2.4-3.5)
[2023-10-12 07:08] LABS: ALT (SGPT) 34 U/L (8-55); AST (SGOT) 51 U/L (5-34); Albumin 3.5 g/dL (3.5-5.0); Alkaline Phosphatase 83 U/L (40-110); Anion Gap 11 mmol/L (10-20); BUN (Urea Nitrogen) 23 mg/dL (8.4-25.7); Bilirubin, Total 0.9 mg/dL (0.2-1.2); Calc. Creatinine Clearance 127 mL/min (70-130); Calcium 8.8 mg/dL (7.8-10.44); Carbon Dioxide 18 mmol/L (22-29); Chloride 108 mmol/L (98-107); Estimated GFR 103; Glucose 96 mg/dL (70-105); Magnesium 1.9 mg/dL (1.6-2.6); Phosphorus 3.3 mg/dL (2.3-4.7); Potassium 3.4 mmol/L (3.5-5.1); Protein, Total 7.3 g/dL (6.0-8.3); Sodium 134 mmol/L (136-145)
[2023-10-12 07:12] LABS: Troponin I 0.047 ng/mL (< 0.028)
[2023-10-12 08:11] LABS: Hypochromia SLIGHT = 6-15 cells HPF (0-5); Platelet Adequacy Comment Platelets Decreased; Polychromasia SLIGHT = 2-3 cells HPF (0-2)
[2023-10-12 08:24] VITALS: TEMP 97.3
[2023-10-12] MEDS: Sodium Chloride 0.9% 1,000 ML IV SCH (09:08)
[2023-10-12] MEDS: Potassium Chloride 20 MEQ TAB PO SCH (09:09)
[2023-10-12] MEDS: Famotidine/PF 20 mg/2ml Vial SLOW IVP SCH (09:09)
[2023-10-12] MEDS: Thiamine HCl 200 MG/2 ML VIAL SLOW IVP SCH (09:09)
[2023-10-12] MEDS: Magnesium 2 GM/50 ML(in water) 2 GM in Premix 1 BAG IVPB SCH ×2 (09:09→14:09)
[2023-10-12] MEDS: Folic Acid 1 MG TAB PO SCH (09:09)
[2023-10-12] MEDS: dilTIAZem CD 180 MG CAP PO SCH (09:09)
[2023-10-12] MEDS: Multivit, Therapeutic 1 TAB PO SCH (09:09)
[2023-10-12] MEDS: Lorazepam 1 MG TAB PO SCH (09:10)
[2023-10-12] MEDS: dilTIAZem 125 MG in Sodium Chloride 0.9% 100 ML IVPB SCH (09:10)
[2023-10-12] MEDS: Enoxaparin 40 MG (0.4 mL) SYRINGE SC SCH (09:56)
[2023-10-12 10:35] LABS: Troponin I 0.037 ng/mL (< 0.028)
[2023-10-12] MEDS ORDERED: Magnesium Sulfate 3 GM in Sodium Chloride 0.9% 100 ML IVPB SCH (13:15)
[2023-10-12] MEDS: dilTIAZem 30 MG TAB PO SCH (14:09)
[2023-10-13] MEDS ORDERED: dilTIAZem 30 MG TAB PO SCH (06:00)
[2023-10-13] MEDS ORDERED: Lorazepam 1 MG TAB PO PRN (06:27)
[2023-10-13] MEDS ORDERED: dilTIAZem CD 180 MG CAP PO SCH (09:00)
[2023-10-14] MEDS ORDERED: Lorazepam 1 MG TAB PO PRN (06:27)
[2023-10-14] MEDS ORDERED: Lorazepam 0.5 MG TAB PO SCH (06:30)
[2023-10-15] MEDS ORDERED: Lorazepam 0.5 MG TAB PO PRN (06:27)
[2023-10-15] MEDS ORDERED: Thiamine 100 MG TAB PO SCH (09:00)
== END 2023-10-12 16:08 | disposition left against medical advice (07) | DRG 309 ==
LOC: IMCU/EMU 05:35
PROVIDERS: ADMIT Student in an Organized Health Care Education/Training Program; ATTEND Hospitalist
DX: I48.91 Unspecified atrial fibrillation (principal); E87.1 Hypo-osmolality and hyponatremia; E87.20 Acidosis, unspecified; F15.20 Other stimulant dependence, uncomplicated; I50.32 Chronic diastolic (congestive) heart failure; F10.239 Alcohol dependence with withdrawal, unspecified; I11.0 Hypertensive heart disease with heart failure; Z88.0 Allergy status to penicillin; Z79.899 Other long term (current) drug therapy; I25.10 Atherosclerotic heart disease of native coronary artery without angina pectoris; Z98.890 Other specified postprocedural states; E87.6 Hypokalemia; D50.9 Iron deficiency anemia, unspecified; K74.60 Unspecified cirrhosis of liver; F19.10 Other psychoactive substance abuse, uncomplicated; I50.9 Heart failure, unspecified; F17.210 Nicotine dependence, cigarettes, uncomplicated
CPT/HCPCS: 36415; 71045; 80053; 80307; 82550; 83605; 83690; 83735; 84100; 84443; 84484; 85025; 85610; 85730; 87040; 93005; 96374; 96375; 96376; J2060; J3411; J3475; J3490; J7050; S0028

== ENCOUNTER 2024-05-07 23:29 | Inpatient (IN) | payer OTHER, SELFPAY ==
[2024-05-12 15:31] LABS: ALT (SGPT) 89 U/L (8-55); AST (SGOT) 130 U/L (5-34); Albumin 3.2 g/dL (3.5-5.0); Alcohol Less than 10.0 mg/dL (Less than 10); Alkaline Phosphatase 115 U/L (40-110); Anion Gap 15 mmol/L (10-20); BUN (Urea Nitrogen) 18 mg/dL (8.4-25.7); Bilirubin, Total 1.5 mg/dL (0.2-1.2); Calc. Creatinine Clearance 0 mL/min (70-130); Carbon Dioxide 22 mmol/L (22-29); Chloride 96 mmol/L (98-107); Estimated GFR 88; Globulin 4.3 g/dL (2.4-3.5); Glucose 105 mg/dL (70-105); Potassium 4.2 mmol/L (3.5-5.1); Protein, Total 7.5 g/dL (6.0-8.3); Sodium 129 mmol/L (136-145)
[2024-05-12 15:32] LABS: Troponin I 0.021 ng/mL (< 0.028)
[2024-05-12 15:33] LABS: Clarity Clear (Clear); Leukocyte Negative Leu/uL (Negative); Nitrite Negative (Negative); Protein, Urine (Dipstick) 50 mg/dL (Neg-Trace); Specific Gravity, Urine 1.011 (1.002-1.036); pH, Urine 7.5 (5.0-9.0)
[2024-05-12 15:34] LABS: Bacteria/HPF None Seen HPF (None Seen); Bilirubin Negative (Negative); Blood, Urine Negative (Negative); Glucose, Urine (Dipstick) Normal (Negative); Ketone, Urine Negative (Negative); RBC/HPF None Seen HPF (0-3); Squamous Epithelial 0-3 HPF (0-3); WBC/HPF 0-3 HPF (0-3)
[2024-05-13 08:34] LABS: White Blood Cell (WBC) Count 5.72 10x3/uL (4.8-10.8)
[2024-05-13 08:35] LABS: #Basophils 0.03 10x3/uL (0.0-0.2); #Eosinophils 0.05 10x3/uL (0.0-0.7); %Basophils 0.5 % (0.0-1.0); %Eosinophils 0.9 % (0.0-10.0); %Lymphocytes 10.8 % (21.0-51.0); %Neutrophils 73.1 % (42.0-75.0); Mean Corpuscular HGB CONC 28.6 g/dL (32.0-36.0); Mean Corpuscular Hemoglobin 20.1 pg (27.0-31.0); Mean Corpuscular Volume 70.4 fL (78.0-98.0); Mean Platelet Volume 9.3 fL (7.4-10.4); Platelet Count 216 10x3/uL (130-400); RBC Distribution Width 20.5 % (11.5-14.5); Red Blood Cell (RBC) Count 3.98 mill/uL (4.70-6.10)
[2024-05-13 08:36] LABS: Hypochromia SLIGHT = 6-15 cells (100X) (0-5/hpf); Microcytosis SLIGHT = 6-15 cells (100X) (0-5/hpf); Target Cells SLIGHT = 2-5 cells (100X) (0-1/hpf)
== END 2024-05-08 20:15 | disposition home or self-care (01) | DRG 309 ==
LOC: ERS 23:29 → ERHOLD 05-08 09:30 → 2NO 05-08 17:23
PROVIDERS: ADMIT Student in an Organized Health Care Education/Training Program; ATTEND Student in an Organized Health Care Education/Training Program
DX: I48.91 Unspecified atrial fibrillation (principal); Z59.00 Homelessness unspecified; I50.9 Heart failure, unspecified; F10.10 Alcohol abuse, uncomplicated; F17.210 Nicotine dependence, cigarettes, uncomplicated; Z91.148 Patient's other noncompliance with medication regimen for other reason; Z88.0 Allergy status to penicillin
CPT/HCPCS: 71045; 80053; 80306; 80307; 81003; 81015; 84484; 85025; 87428; 93005; 96365; 96366; 96372; 96375; 96376

== ENCOUNTER 2024-05-13 16:40 | Inpatient (IN) | payer OTHER, SELFPAY ==
[2024-05-13] MEDS ORDERED: Magnesium 2 GM/50 ML BAG (IN WATER) ONE (17:19)
[2024-05-13] MEDS ORDERED: LORazepam 2 MG/ML SYR.(CARPUJECT) ONE ×2 (17:19→17:41)
[2024-05-13] MEDS ORDERED: dilTIAZem 25 MG/5 ML VIAL ONE ×3 (17:36→19:53)
[2024-05-13 17:40] LABS: #Basophils 0.08 10x3/uL (0.0-0.2); %Basophils 1.1 % (0.0-1.0); %Eosinophils 0.8 % (0.0-10.0); %Lymphocytes 7.8 % (21.0-51.0); %Monocytes 15.1 % (0.0-10.0); %Neutrophils 74.3 % (42.0-75.0); Hematocrit 29.5 % (42.0-52.0); Hemoglobin 8.2 g/dL (14.0-18.0); Mean Corpuscular HGB CONC 27.8 g/dL (32.0-36.0); Mean Corpuscular Hemoglobin 19.9 pg (27.0-31.0); Mean Corpuscular Volume 71.6 fL (78.0-98.0); Mean Platelet Volume 9.1 fL (7.4-10.4); Platelet Count 193 10x3/uL (130-400); Red Blood Cell (RBC) Count 4.12 mill/uL (4.70-6.10)
[2024-05-13 17:51] LABS: Lipase 21 U/L (8-78)
[2024-05-13] MEDS ORDERED: Digoxin 0.5 MG/2 ML AMP ONE (17:53)
[2024-05-13 17:54] LABS: Acetaminophen Less than 10 mcg/mL (Less than 10); Alcohol Less than 10.0 mg/dL (Less than 10); Salicylate Less than 8.0 mg/dL (Less than 8.0)
[2024-05-13 17:55] LABS: ALT (SGPT) 70 U/L (8-55); AST (SGOT) 104 U/L (5-34); Albumin 3.3 g/dL (3.5-5.0); Alkaline Phosphatase 141 U/L (40-110); Anion Gap 16 mmol/L (10-20); BUN (Urea Nitrogen) 21 mg/dL (8.4-25.7); Bilirubin, Total 1.5 mg/dL (0.2-1.2); CK (CPK) 204 U/L (30-200); Calc. Creatinine Clearance 0 mL/min (70-130); Carbon Dioxide 18 mmol/L (22-29); Chloride 99 mmol/L (98-107); Estimated GFR 101; Globulin 4.9 g/dL (2.4-3.5); Glucose 78 mg/dL (70-105); Potassium 4.8 mmol/L (3.5-5.1); Protein, Total 8.2 g/dL (6.0-8.3); Sodium 128 mmol/L (136-145)
[2024-05-13] MEDS ORDERED: Thiamine HCl 200 MG/2 ML VIAL ONE (17:55)
[2024-05-13 17:58] LABS: Troponin I 0.034 ng/mL (< 0.028)
[2024-05-13] MEDS ORDERED: dilTIAZem 125 MG/25 ML SDV ONE (19:53)
[2024-05-13] MEDS ORDERED: Ondansetron PF 4 MG/2 ML Vial IVP PRN (20:30)
[2024-05-13] MEDS ORDERED: Ondansetron ODT 4 MG TAB SL PRN (20:30)
[2024-05-13 20:56] LABS: Lactic Acid 3.63 mmol/L (0.5-2.2)
[2024-05-13 21:04] LABS: Troponin I 0.038 ng/mL (< 0.028)
[2024-05-13] MEDS ORDERED: Ondansetron ODT 4 MG TAB PO PRN (21:04)
[2024-05-13] MEDS ORDERED: Lorazepam 2 MG/ML VIAL IM PRN (21:04)
[2024-05-13] MEDS ORDERED: Lorazepam 1 MG TAB PO PRN (21:04)
[2024-05-13] MEDS ORDERED: Haloperidol Lactate 5 MG/ML VIAL ONE (21:10)
[2024-05-13] MEDS ORDERED: Electrolyte Replacement Protocol FS SCH (21:15)
[2024-05-13 21:22] LABS: #Basophils 0.07 10x3/uL (0.0-0.2); #Eosinophils Less than 0.03 10x3/uL (0.0-0.7); %Basophils 0.9 % (0.0-1.0); %Eosinophils 0.3 % (0.0-10.0); %Lymphocytes 7.4 % (21.0-51.0); %Monocytes 15.3 % (0.0-10.0); %Neutrophils 75.3 % (42.0-75.0); Hematocrit 25.5 % (42.0-52.0); Hemoglobin 7.3 g/dL (14.0-18.0); Mean Corpuscular HGB CONC 28.6 g/dL (32.0-36.0); Mean Corpuscular Hemoglobin 20.4 pg (27.0-31.0); Mean Corpuscular Volume 71.4 fL (78.0-98.0); Platelet Count 172 10x3/uL (130-400); RBC Distribution Width 20.9 % (11.5-14.5); Red Blood Cell (RBC) Count 3.57 mill/uL (4.70-6.10)
[2024-05-13 21:39] LABS: ALT (SGPT) 62 U/L (8-55); AST (SGOT) 95 U/L (5-34); Albumin 2.9 g/dL (3.5-5.0); Alkaline Phosphatase 127 U/L (40-110); Anion Gap 15 mmol/L (10-20); BUN (Urea Nitrogen) 19 mg/dL (8.4-25.7); Bilirubin, Direct 1.1 mg/dL (0.1-0.3); Bilirubin, Total 1.6 mg/dL (0.2-1.2); Calc. Creatinine Clearance 0 mL/min (70-130); Calcium 8.6 mg/dL (7.8-10.44); Carbon Dioxide 17 mmol/L (22-29); Chloride 101 mmol/L (98-107); Estimated GFR 105; Globulin 4.2 g/dL (2.4-3.5); Glucose 91 mg/dL (70-105); Magnesium 1.9 mg/dL (1.6-2.6); Phosphorus 2.5 mg/dL (2.3-4.7); Potassium 4.9 mmol/L (3.5-5.1); Protein, Total 7.1 g/dL (6.0-8.3); Sodium 128 mmol/L (136-145)
[2024-05-13 21:45] LABS: Anisocytosis SLIGHT = 6-15 cells HPF (0-5); Burr Cells SLIGHT = 2-5 cells HPF (0-1); Elliptocytes SLIGHT = 2-5 cells HPF (0-1); Microcytosis SLIGHT = 6-15 cells HPF (0-5); Platelet Adequacy Comment Platelets Normal; Polychromasia SLIGHT = 2-3 cells HPF (0-2); Schistocytes SLIGHT = 2-5 cells HPF (0-1)
[2024-05-13] MEDS ORDERED: Lorazepam 1 MG TAB PO SCH (22:00)
[2024-05-13 22:45] VITALS: BMI 30.8
[2024-05-13] MEDS: Sodium Chloride 0.9% 1,000 ML IV SCH ×2 (23:00→23:58)
[2024-05-13] MEDS: Dexmedetomidine In 0.9 % NaCl 100 ML IVPB SCH (23:14)
[2024-05-13] MEDS: Thiamine HCl 200 MG/2 ML VIAL SLOW IVP SCH (23:58)
[2024-05-14] MEDS: Lorazepam 2 MG/ML VIAL SLOW IVP PRN
[2024-05-14 00:25] LABS: Troponin I 0.042 ng/mL (< 0.028)
[2024-05-14 00:25] LABS: Amphetamine Detected (NotDetected); Barbiturates Screen Not Detected (NotDetected); Benzodiazepine Screen Detected (NotDetected); Cocaine Metabolite Screen Not Detected (NotDetected); Methadone Not Detected (NotDetected); Methamphetamine Detected (NotDetected); Opiate Screen Not Detected (NotDetected); Oxycodone Screen Not Detected (NotDetected); Phencyclidine (PCP) Not Detected (NotDetected); THC/Cannabinoid Screen Not Detected (NotDetected); Tricyclic Screen Not Detected (NotDetected)
[2024-05-14] MEDS: dilTIAZem 125 MG, Admixture Fee 1 EACH in Sodium Chloride 0.9% 100 ML IVPB SCH (02:10)
[2024-05-14 06:51] LABS: Lactic Acid 0.82 mmol/L (0.5-2.2)
[2024-05-14 06:54] LABS: ALT (SGPT) 55 U/L (8-55); AST (SGOT) 86 U/L (5-34); Albumin 2.6 g/dL (3.5-5.0); Alkaline Phosphatase 103 U/L (40-110); Anion Gap 11 mmol/L (10-20); BUN (Urea Nitrogen) 17 mg/dL (8.4-25.7); Bilirubin, Total 1.5 mg/dL (0.2-1.2); Calc. Creatinine Clearance 157 mL/min (70-130); Calcium 7.9 mg/dL (7.8-10.44); Carbon Dioxide 20 mmol/L (22-29); Chloride 106 mmol/L (98-107); Estimated GFR 104; Globulin 3.6 g/dL (2.4-3.5); Glucose 100 mg/dL (70-105); Phosphorus 2.6 mg/dL (2.3-4.7); Potassium 4.2 mmol/L (3.5-5.1); Protein, Total 6.2 g/dL (6.0-8.3); Sodium 133 mmol/L (136-145)
[2024-05-14 07:27] LABS: #Basophils 0.04 10x3/uL (0.0-0.2); %Basophils 0.8 % (0.0-1.0); %Eosinophils 0.8 % (0.0-10.0); %Monocytes 14.9 % (0.0-10.0); %Neutrophils 71.9 % (42.0-75.0); Hematocrit 24.3 % (42.0-52.0); Hemoglobin 6.8 g/dL (14.0-18.0); Mean Corpuscular Hemoglobin 19.7 pg (27.0-31.0); Mean Corpuscular Volume 70.2 fL (78.0-98.0); Mean Platelet Volume 9.7 fL (7.4-10.4); Platelet Count 133 10x3/uL (130-400); RBC Distribution Width 20.8 % (11.5-14.5); Red Blood Cell (RBC) Count 3.46 mill/uL (4.70-6.10)
[2024-05-14] MEDS: Enoxaparin 40 MG (0.4 mL) SYRINGE SC SCH (09:47)
[2024-05-14] MEDS: Multivit, Therapeutic 1 TAB PO SCH (09:47)
[2024-05-14] MEDS: Folic Acid 1 MG TAB PO SCH (09:47)
[2024-05-14] MEDS: Pantoprazole 40 MG VIAL IVP SCH (09:48)
[2024-05-14] MEDS: Magnesium 2 GM/50 ML(in water) 2 GM in Premix 1 BAG IVPB SCH (13:21)
[2024-05-14 13:26] LABS: INR-International Normal Ratio 1.7; PTT 38.2 sec (22.9-36.1); Prothrombin Time 20.1 sec (12.0-14.7)
[2024-05-14] MEDS ORDERED: Lorazepam 1 MG TAB PO PRN (21:04)
[2024-05-14] MEDS: dilTIAZem 25 MG/5 ML VIAL SLOW IVP SCH (22:17)
[2024-05-14] MEDS: Sodium Chloride 0.9% 500 ML IV SCH (22:18)
[2024-05-15] MEDS: Metoprolol Tartrate 5 MG (5 mL) VIAL IVP SCH ×2 (01:05→21:54)
[2024-05-15 05:27] LABS: #Basophils 0.04 10x3/uL (0.0-0.2); %Basophils 0.7 % (0.0-1.0); %Eosinophils 3.3 % (0.0-10.0); %Lymphocytes 8.7 % (21.0-51.0); %Monocytes 10.2 % (0.0-10.0); %Neutrophils 76.4 % (42.0-75.0); Hematocrit 27.3 % (42.0-52.0); Hemoglobin 7.7 g/dL (14.0-18.0); Mean Corpuscular HGB CONC 28.2 g/dL (32.0-36.0); Mean Corpuscular Hemoglobin 19.7 pg (27.0-31.0); Mean Platelet Volume 9.2 fL (7.4-10.4); Platelet Count 134 10x3/uL (130-400); RBC Distribution Width 20.9 % (11.5-14.5)
[2024-05-15 05:44] LABS: Anion Gap 10 mmol/L (10-20); BUN (Urea Nitrogen) 15 mg/dL (8.4-25.7); Calc. Creatinine Clearance 161 mL/min (70-130); Calcium 7.6 mg/dL (7.8-10.44); Carbon Dioxide 19 mmol/L (22-29); Chloride 107 mmol/L (98-107); Estimated GFR 105; Glucose 101 mg/dL (70-105); Magnesium 1.7 mg/dL (1.6-2.6); Potassium 4.4 mmol/L (3.5-5.1); Sodium 132 mmol/L (136-145)
[2024-05-15 06:26] LABS: Anisocytosis SLIGHT = 6-15 cells HPF (0-5); Hypochromia SLIGHT = 6-15 cells HPF (0-5); Microcytosis SLIGHT = 6-15 cells HPF (0-5); Platelet Adequacy Comment Platelets Normal; Polychromasia SLIGHT = 2-3 cells HPF (0-2)
[2024-05-15] MEDS: Magnesium 2 GM/50 ML(in water) 2 GM in Premix 1 BAG IVPB SCH (11:10)
[2024-05-15] MEDS: chlordiazePOXIDE HCl 5 MG CAP PO SCH (15:11)
[2024-05-15] MEDS ORDERED: Lorazepam 1 MG TAB PO PRN (21:04)
[2024-05-15] MEDS ORDERED: Lorazepam 0.5 MG TAB PO SCH (22:00)
[2024-05-16] MEDS: dilTIAZem 25 MG/5 ML VIAL SLOW IVP SCH (04:10)
[2024-05-16 04:24] LABS: #Basophils 0.05 10x3/uL (0.0-0.2); %Basophils 0.9 % (0.0-1.0); %Eosinophils 4.7 % (0.0-10.0); %Lymphocytes 11.4 % (21.0-51.0); %Neutrophils 69.3 % (42.0-75.0); Hematocrit 26.9 % (42.0-52.0); Hemoglobin 7.5 g/dL (14.0-18.0); Mean Corpuscular HGB CONC 27.9 g/dL (32.0-36.0); Mean Corpuscular Hemoglobin 19.7 pg (27.0-31.0); Mean Corpuscular Volume 70.6 fL (78.0-98.0); Mean Platelet Volume 9.4 fL (7.4-10.4); Platelet Count 135 10x3/uL (130-400); Red Blood Cell (RBC) Count 3.81 mill/uL (4.70-6.10)
[2024-05-16] MEDS: dilTIAZem 125 MG, Admixture Fee 1 EACH in Sodium Chloride 0.9% 100 ML IVPB SCH (04:25)
[2024-05-16 04:36] LABS: Anion Gap 10 mmol/L (10-20); BUN (Urea Nitrogen) 17 mg/dL (8.4-25.7); Calc. Creatinine Clearance 159 mL/min (70-130); Calcium 8.1 mg/dL (7.8-10.44); Carbon Dioxide 20 mmol/L (22-29); Chloride 106 mmol/L (98-107); Estimated GFR 105; Glucose 110 mg/dL (70-105); Magnesium 1.8 mg/dL (1.6-2.6); Potassium 4.3 mmol/L (3.5-5.1); Sodium 132 mmol/L (136-145)
[2024-05-16] MEDS ORDERED: Electrolyte Replacement Protocol FS PRN (08:00)
[2024-05-16] MEDS: Magnesium Oxide 400 MG TAB PO SCH (08:01)
[2024-05-16] MEDS: Magnesium 2 GM/50 ML(in water) 2 GM in Premix 1 BAG IVPB SCH (08:01)
[2024-05-16 13:53] VITALS: BMI 31.4
[2024-05-16 17:39] VITALS: BP 150/94
[2024-05-16] MEDS: chlordiazePOXIDE HCl 25 MG CAP PO SCH (17:40)
[2024-05-16] MEDS ORDERED: cloNIDine 0.1 MG TAB PO PRN (19:10)
[2024-05-16] MEDS: chlordiazePOXIDE HCl 5 MG CAP PO SCH (20:47)
[2024-05-16] MEDS: Thiamine 100 MG TAB PO SCH (20:48)
[2024-05-16] MEDS ORDERED: Lorazepam 0.5 MG TAB PO PRN (21:04)
[2024-05-17] MEDS: Ipratropium/Albuterol 3 ML NEB NEB PRN (01:45)
[2024-05-17 06:06] LABS: Anion Gap 12 mmol/L (10-20); BUN (Urea Nitrogen) 15 mg/dL (8.4-25.7); Calc. Creatinine Clearance 164 mL/min (70-130); Calcium 8.1 mg/dL (7.8-10.44); Carbon Dioxide 21 mmol/L (22-29); Chloride 102 mmol/L (98-107); Estimated GFR 105; Glucose 102 mg/dL (70-105); Magnesium 1.8 mg/dL (1.6-2.6); Potassium 4.1 mmol/L (3.5-5.1); Sodium 131 mmol/L (136-145)
[2024-05-17] MEDS: Magnesium 2 GM/50 ML(in water) 2 GM in Premix 1 BAG IVPB SCH (08:48)
[2024-05-17 08:55] VITALS: TEMP 97.7
== END 2024-05-17 16:38 | DRG 896 ==
LOC: ERS 16:40 → EEVIPCON 16:40 → ERHOLD 20:05 → IMCU/EMU 22:43
PROVIDERS: ADMIT Internal Medicine; ATTEND Internal Medicine
DX: F10.131 Alcohol abuse with withdrawal delirium (principal); G93.41 Metabolic encephalopathy; I21.A1 Myocardial infarction type 2; E87.1 Hypo-osmolality and hyponatremia; E87.20 Acidosis, unspecified; I48.91 Unspecified atrial fibrillation; F10.10 Alcohol abuse, uncomplicated; I50.9 Heart failure, unspecified; I11.0 Hypertensive heart disease with heart failure; F19.10 Other psychoactive substance abuse, uncomplicated; D63.8 Anemia in other chronic diseases classified elsewhere; F15.10 Other stimulant abuse, uncomplicated; E83.42 Hypomagnesemia; R79.89 Other specified abnormal findings of blood chemistry; Z79.899 Other long term (current) drug therapy
CPT/HCPCS: 36415; 36416; 71045; 80048; 80053; 80306; 80307; 82140; 82248; 82550; 83605; 83690; 83735; 84100; 84443; 84484; 85025; 85610; 85730; 93005; 94640; 96374; 96375; 96376; J1160; J1630; J1650; J2060; J2470; J3411; J3475; J7030; J7620

== ENCOUNTER 2024-06-18 15:44 | Emergency (ER) | payer BC ==
[2024-06-18] MEDS ORDERED: Fluorescein Opthalmic Strip ONE (16:57)
[2024-06-18] MEDS ORDERED: Proparacaine 0.5% Opth 15 ML BOT ONE (16:57)
[2024-06-18] MEDS ORDERED: Gabapentin 300 MG CAP ONE (17:26)
[2024-06-18 18:26] LABS: Troponin I 0.015 ng/mL (< 0.028)
[2024-06-18 18:31] LABS: Anisocytosis MODERATE=16-30 cells HPF (0-5); Burr Cells SLIGHT = 2-5 cells HPF (0-1); Hypochromia SLIGHT = 6-15 cells HPF (0-5); Microcytosis SLIGHT = 6-15 cells HPF (0-5); Ovalocytes SLIGHT = 2-5 cells HPF (0-1); Platelet Adequacy Comment Platelets Decreased; Polychromasia MODERATE = 3-4 cells HPF (0-2)
[2024-06-18 18:37] LABS: #Basophils 0.05 10x3/uL (0.0-0.2); %Basophils 1.2 % (0.0-1.0); %Lymphocytes 24.4 % (21.0-51.0); %Neutrophils 53.2 % (42.0-75.0); Hematocrit 32.7 % (42.0-52.0); Hemoglobin 9.3 g/dL (14.0-18.0); Mean Corpuscular HGB CONC 28.4 g/dL (32.0-36.0); Mean Corpuscular Hemoglobin 21.8 pg (27.0-31.0); Mean Corpuscular Volume 76.8 fL (78.0-98.0); Mean Platelet Volume 10.1 fL (7.4-10.4); Platelet Count 103 10x3/uL (130-400); RBC Distribution Width 25.7 % (11.5-14.5); Red Blood Cell (RBC) Count 4.26 mill/uL (4.70-6.10)
[2024-06-18 18:52] LABS: Calc. Creatinine Clearance 0 mL/min (70-130); Estimated GFR 101
[2024-06-18 18:54] LABS: ALT (SGPT) 26 U/L (8-55); AST (SGOT) 37 U/L (5-34); Alkaline Phosphatase 108 U/L (40-110); Anion Gap 17 mmol/L (10-20); BUN (Urea Nitrogen) 18 mg/dL (8.4-25.7); Bilirubin, Total 0.5 mg/dL (0.2-1.2); Calcium 9.5 mg/dL (7.8-10.44); Carbon Dioxide 19 mmol/L (22-29); Chloride 104 mmol/L (98-107); Globulin 4.1 g/dL (2.4-3.5); Glucose 71 mg/dL (70-105); Potassium 4.4 mmol/L (3.5-5.1); Protein, Total 8.1 g/dL (6.0-8.3); Sodium 136 mmol/L (136-145)
== END 2024-06-18 19:15 | disposition home or self-care (01) ==
LOC: ERS 15:44
DX: I48.91 Unspecified atrial fibrillation (principal); H53.8 Other visual disturbances; Z79.01 Long term (current) use of anticoagulants
CPT/HCPCS: 36415; 80053; 84484; 85025; 86141; 93005; 99285

== ENCOUNTER 2024-07-18 11:02 | Emergency (ER) | payer BC, OTHER ==
[2024-07-18 12:28] LABS: Hematocrit 28.5 % (42.0-52.0); Hemoglobin 8.8 g/dL (14.0-18.0); Mean Corpuscular HGB CONC 30.9 g/dL (32.0-36.0); Mean Corpuscular Hemoglobin 24.2 pg (27.0-31.0); Mean Corpuscular Volume 78.3 fL (78.0-98.0); Mean Platelet Volume 9.7 fL (7.4-10.4); Platelet Count 156 10x3/uL (130-400); RBC Distribution Width 22.3 % (11.5-14.5); Red Blood Cell (RBC) Count 3.64 mill/uL (4.70-6.10)
[2024-07-18 12:49] LABS: Anisocytosis SLIGHT = 6-15 cells HPF (0-5); Band 1 % (5-11); Eosinophils 4 % (0-10); Lymphocytes 16 % (21-51); Microcytosis SLIGHT = 6-15 cells HPF (0-5); Monocytes 13 % (0-10); Neutrophil 63 % (42-75); Platelet Adequacy Comment Platelets Normal; Polychromasia SLIGHT = 2-3 cells HPF (0-2); Schistocytes SLIGHT = 2-5 cells HPF (0-1)
[2024-07-18 12:51] LABS: ALT (SGPT) 30 U/L (Less than 45); AST (SGOT) 41 U/L (11-34); Albumin 3.9 g/dL (3.1-4.5); Alkaline Phosphatase 95 U/L (40-110); Anion Gap 13 mmol/L (10-20); BUN (Urea Nitrogen) 27 mg/dL (8.4-25.7); Bilirubin, Total 0.4 mg/dL (0.3-1.2); Calc. Creatinine Clearance 0 mL/min (70-130); Calcium 9.6 mg/dL (7.8-10.44); Carbon Dioxide 22 mmol/L (22-29); Chloride 106 mmol/L (98-107); Estimated GFR 77; Globulin 3.7 g/dL (2.4-3.5); Glucose 93 mg/dL (70-105); Magnesium 1.8 mg/dL (1.6-2.6); Potassium 4.2 mmol/L (3.5-5.1); Protein, Total 7.6 g/dL (6.0-8.3); Sodium 137 mmol/L (136-145)
[2024-07-18 12:54] LABS: Troponin I 0.012 ng/mL (< 0.028)
[2024-07-18] MEDS ORDERED: dilTIAZem 25 MG/5 ML VIAL ONE (13:00)
[2024-07-18 13:21] LABS: Digoxin Less than 0.19 ng/mL (0.8-2.0)
[2024-07-18] MEDS ORDERED: dilTIAZem CD 180 MG CAP PO SCH (15:00)
== END 2024-07-18 16:17 ==
LOC: EEVIPCON 11:02 → ERS 11:02
DX: D64.9 Anemia, unspecified (principal); I48.0 Paroxysmal atrial fibrillation; I45.81 Long QT syndrome; Z91.199 Patient's noncompliance with other medical treatment and regimen due to unspecified reason; I11.0 Hypertensive heart disease with heart failure; I50.9 Heart failure, unspecified; I25.10 Atherosclerotic heart disease of native coronary artery without angina pectoris; Z79.01 Long term (current) use of anticoagulants; Z79.899 Other long term (current) drug therapy
CPT/HCPCS: 36415; 71045; 80053; 80162; 83735; 83880; 84443; 84484; 85025; 87428; 93005; 94760; 96374